=== PATIENT | female | born 1990 | race Two or more races ===

== ENCOUNTER 2025-08-13 13:45 | Inpatient (IN) | payer OTHER ==
[~2025-08-13] VITALS: Ht 157.5 cm; Wt 3.6 kg
[2025-08-27 05:45] VITALS: BP 122/79
[2025-08-27] MEDS ORDERED: RINGERS SOLUTION,LACTATED 1,000 ML IV SCH (05:45)
[2025-08-27 06:48] LABS: BASO % 0.6 % (0.1-1.2); EOS # 0.17 (0.04-0.54); EOS % 1.4 % (0.7-7.0); LYMPH # 2.08 (1.18-3.74); LYMPH % 16.7 % (19.3-53.1); MEAN PLATELET VOLUME 12.50 fl (9.4-12.4); MONO # 1.03 (0.24-0.82); MONO % 8.3 % (4.7-12.5); NEUT # 9.02 (1.56-6.13); NEUT % 72.3 % (34.0-71.1); RED CELL DISTRIBUTION WIDTH 13.1 % (11.6-14.4)
[2025-08-27 07:21] LABS: ALT/SGPT 24.0 U/L (12-78); AST/SGOT 22.0 U/L (15-37); BILIRUBIN TOTAL 0.3 mg/dL (0.3-1.2); BUN CREA RATIO 25.0 (7.0-25.0); CREATININE SERUM 0.52 mg/dL (0.55-1.02); GFR 133.43; GLOBULINA 3.6 G/DL (2.4-3.5); GLUCOSE FASTING 79.0 mg/dL (65-100); OSMOLALITY SERUM 280.0 MOSM/KG (275-295)
[2025-08-27] MEDS ORDERED: OXYTOCIN 20 UNITS/500ML RL PIGGYBAG IV ONE (07:26)
[2025-08-27] MEDS ORDERED: OXYTOCIN 500 ML IV ONE (07:30)
[2025-08-27 07:31] LABS: INR < 0.93
[2025-08-27 07:40] VITALS: BP 129/76
[2025-08-27 10:54] VITALS: BP 112/69
[2025-08-27 15:32] VITALS: BP 123/72
[2025-08-27] MEDS ORDERED: CEFAZOLIN SODIUM 1,000 MG VIAL IV SCH (17:15)
[2025-08-27] MEDS ORDERED: OXYTOCIN 10 UNITS/ML VIAL ONE ×2 (17:46→21:35)
[2025-08-27] MEDS ORDERED: ERYTHROMYCIN BASE OPHT 1GM EACH TUBE OP ONE (17:46)
[2025-08-27] MEDS ORDERED: KETOROLAC TROMETHAMINE 30 MG VIAL IV SCH (20:27)
[2025-08-27] MEDS ORDERED: OXYTOCIN 1,000 ML IV ONE (20:30)
[2025-08-27] MEDS ORDERED: MORPHINE SULFATE 4 MG/ML VIAL IV PRN (20:30)
[2025-08-27 22:14] VITALS: BP 121/72; O2SAT 99
[2025-08-28] VITALS: BP 113/70
[2025-08-28] MEDS ORDERED: ACETAMINOPHEN 500 MG GEL..CAP PO SCH
[2025-08-28 07:18] LABS: BASO % 0.3 % (0.1-1.2); EOS # 0.00 (0.04-0.54); EOS % 0.0 % (0.7-7.0); LYMPH # 1.36 (1.18-3.74); LYMPH % 5.3 % (19.3-53.1); MEAN PLATELET VOLUME 12.90 fl (9.4-12.4); MONO # 1.33 (0.24-0.82); MONO % 5.1 % (4.7-12.5); NEUT # 22.91 (1.56-6.13); NEUT % 88.7 % (34.0-71.1); RED CELL DISTRIBUTION WIDTH 13.2 % (11.6-14.4)
[2025-08-28] MEDS ORDERED: DOCUSATE SODIUM 100MG CAP PO SCH (09:00)
[2025-08-28] MEDS ORDERED: SIMETHICONE 125 MG CAPSULE PO SCH (09:00)
[2025-08-28] MEDS ORDERED: GABAPENTIN 300 MG CAPSULE PO SCH (09:00)
[2025-08-28] MEDS ORDERED: PNV,CALCIUM 72/IRON/FOLIC ACID 1 TAB TABLET PO SCH (09:00)
[2025-08-28 10:37] VITALS: BP 96/62; O2SAT 98
[2025-08-28 15:56] VITALS: BP 109/68
[2025-08-28 20:44] VITALS: BP 102/68
[2025-08-29] VITALS: BP 98/61
[2025-08-29 08:00] VITALS: BP 106/71
== END 2025-08-29 15:04 | disposition home or self-care (01) | DRG 788 ==
LOC: OB/GYN 08-19 13:45 → LDR 08-27 05:27 → O/R 08-27 18:11 → OB/GYN 08-27 19:52
PROVIDERS: Obstetrics & Gynecology; Obstetrics & Gynecology Gynecology; ADMIT Obstetrics & Gynecology; ATTEND Obstetrics & Gynecology
PROC: 4A1HXCZ Monitoring of Products of Conception, Cardiac Rate, External Approach (ICD-10-PCS; 2025-08-27)
PROC: 10D00Z1 Extraction of Products of Conception, Low, Open Approach (ICD-10-PCS; principal; 2025-08-27 18:15)
DX: O82 Encounter for cesarean delivery without indication (principal); O62.1 Secondary uterine inertia; O36.63X0 Maternal care for excessive fetal growth, third trimester, not applicable or unspecified; O48.0 Post-term pregnancy; Z3A.41 41 weeks gestation of pregnancy; Z37.0 Single live birth

== ENCOUNTER → 2025-08-16 09:12 | Outpatient (CLI) | payer OTHER ==
[2025-08-16 09:35] VITALS: BP 111/70
== END | disposition home or self-care (01) ==
LOC: NST 09:12
PROVIDERS: ATTEND Obstetrics & Gynecology Gynecology
DX: Z34.83 Encounter for supervision of other normal pregnancy, third trimester (principal)

== ENCOUNTER 2025-08-21 09:42 | Outpatient (CLI) | payer OTHER | END 2025-08-21 10:31 | disposition home or self-care (01) | LOC: NST 09:42 | PROVIDERS: ATTEND Obstetrics & Gynecology | DX: Z34.83 Encounter for supervision of other normal pregnancy, third trimester (principal) ==

== ENCOUNTER → 2025-09-05 | Emergency (ER) | payer OTHER ==
[~2025-09-05] VITALS: Ht 160 cm; Wt 81.6 kg
[~2025-09-05] MED LIST: 0.9 % SODIUM CHLORIDE 1,000 ML IV STA; CEFTRIAXONE SODIUM 1,000 MG VIAL IV STA
[2025-09-05 08:53] LABS: BASO % 0.3 % (0.1-1.2); EOS # 0.20 (0.04-0.54); EOS % 1.4 % (0.7-7.0); LYMPH # 1.72 (1.18-3.74); LYMPH % 11.9 % (19.3-53.1); MEAN PLATELET VOLUME 10.10 fl (9.4-12.4); MONO # 0.71 (0.24-0.82); MONO % 4.9 % (4.7-12.5); NEUT # 11.66 (1.56-6.13); NEUT % 80.6 % (34.0-71.1); RED CELL DISTRIBUTION WIDTH 12.8 % (11.6-14.4)
[2025-09-05 09:10] LABS: INR 0.95
[2025-09-05 09:16] LABS: ALT/SGPT 83.0 U/L (12-78); AST/SGOT 27.0 U/L (15-37); BILIRUBIN TOTAL 0.28 mg/dL (0.3-1.2); BUN CREA RATIO 31.0 (7.0-25.0); CREATININE SERUM 0.45 mg/dL (0.55-1.02); GFR 157.65; GLOBULINA 4.6 G/DL (2.4-3.5); GLUCOSE FASTING 89.0 mg/dL (65-100); OSMOLALITY SERUM 287.0 MOSM/KG (275-295)
== END | disposition home or self-care (01) ==
LOC: ER 06:50
PROVIDERS: General Practice
DX: O90.89 Other complications of the puerperium, not elsewhere classified (principal)